=== PATIENT | male | born 1995 | race American Indian/Alaskan Native ===

== ENCOUNTER 2016-10-25 14:50 | Emergency (ER) | payer SELFPAY ==
--- NOTE | 2016-10-25 21:18 | Emergency Department Report ---
HPI - General Chief Complaint: Urogenital-Male Time Seen by Provider: 10/25/16 21:04 - HPI HPI: Room 8 The patient is a 21-year-old male presenting with chief complaint of intrascrotal mass the patient states for a little over one year he's had the sensation that there is a mass growing in his scrotum that is separate from his testicles. The patient states it hurts occasionally if he stands for prolonged periods of time. Patient denies actual testicular pain. Patient denies dysuria or hematuria states he feels at times he incompletely voids. Location: Scrotum Duration: Over one year Quality: Occasionally painful Severity: Moderate Modifying factors: Standing for prolonged periods of time brings on pain Context: [see above] Mode of transportation: Unknown ED Past Medical Hx - Past Medical History Previous Medical History?: Yes Hx Asthma: Yes - Surgical History Past Surgical History?: No - Family History Family history: no significant - Social History Smoking Status: Current Some Day Smoker Substance Use Type: Alcohol (occasional), Marijuana - Medications Home Medications: Home Medications Medication Instructions Recorded Confirmed Last Taken Type No Known Home Medications [No 10/25/16 10/25/16 Unknown History Reported Home Medications] ED Review of Systems ROS: Stated complaint: BACK/LEFT LEG PAIN Other details as noted in HPI Comment: All other systems reviewed and negative Constitutional: denies: chills, fever Eyes: denies: eye pain, eye discharge, vision change ENT: denies: ear pain, throat pain Respiratory: denies: cough, shortness of breath, wheezing Cardiovascular: denies: chest pain, palpitations Endocrine: no symptoms reported Gastrointestinal: denies: abdominal pain, nausea, diarrhea Genitourinary: other (scrotal mass). denies: dysuria, hematuria, testicular pain, testicular mass Musculoskeletal: denies: back pain, joint swelling, arthralgia Skin: denies: rash, lesions Psychiatric: denies: anxiety, depression Hematological/Lymphatic: denies: easy bleeding, easy bruising Physical Exam - Physical Exam Vital Signs: Vital Signs 10/25/16 16:12 Temperature 98.2 F Pulse Rate 65 Respiratory 16 Rate Blood Pressure 138/88 O2 Sat by Pulse 99 Oximetry Physical Exam: GENERAL: The patient is well-developed well-nourished On stretcher eating candy not appearing to be in acute distress. [] HEENT: Normocephalic. Atraumatic. Extraocular motions are intact. NECK: Trachea midline CHEST/LUNGS: There is no respiratory distress noted. ABDOMEN: There is no abdominal distention. SKIN: There is no rash. There is no edema. There is no diaphoresis. NEURO: The patient is awake, alert, and oriented. The patient is cooperative. The patient has normal speech and gait. MUSCULOSKELETAL: There is no evidence of acute injury. GENITOURINARY: Soft tissue fullness palpated in the upper left scrotum. There is no induration. No evidence of direct or indirect inguinal hernia on exam ED Course Vital Signs 10/25/16 16:12 Temperature 98.2 F Pulse Rate 65 Respiratory 16 Rate Blood Pressure 138/88 O2 Sat by Pulse 99 Oximetry ED Medical Decision Making - Lab Data Laboratory Tests 10/25/16 21:40 Urine Color [place] Urine Turbidity Clear Urine pH 5.0 Ur Specific [place] 1.031 H Urine Protein 100 mg/dl Urine Glucose (UA) Neg Urine Ketones Tr Urine Blood Neg Urine Nitrite Neg Urine Bilirubin Neg Urine Urobilinogen < 2.0 Ur Leukocyte Esterase Neg Urine WBC (Auto) 2.0 Urine RBC (Auto) 1.0 Calcium Oxalate Crystal Few Urine Mucus 3+ - Radiology Data Radiology results: report reviewed (testicular ultrasound, CT abdomen and pelvis ), image reviewed (testicular ultrasound, CT abdomen and pelvis) Testicular ultrasound (read by radiologist)-testicles are normal in size, configuration, location and echotexture. There is no testicular torsion, mass or orchitis. Left epididymis is enlarged. Epididymitis not excluded. There is a mass. The left scrotum measuring 5.2 x 1.9 x 4.7 cm. This could be a hernia please correlate clinically or consider CT scan. G abdomen pelvis (read by radiologist)-there is a 3 mm stone in the lower pole of the right kidney. There are no ureteral stones. There is no hydronephrosis. There is no bowel obstruction, colitis or enteritis. The appendix is normal. There is a large indirect left inguinal hernia containing inflamed omental fat. There is no herniation of bowel. - Differential Diagnosis scrotal mass, hydrocele, varicocele, inguinal hernia Critical care attestation.: If time is entered above; I have spent that time in minutes in the direct care of this critically ill patient, excluding procedure time. ED Disposition Clinical Impression: Indirect inguinal hernia, Epididymal thickening Disposition: DISCHARGED TO HOME OR SELFCARE Is pt being admited?: No Does the pt Need Aspirin: No Condition: Stable Instructions: Inguinal Hernia (ED), Epididymitis (ED) Additional Instructions: Return to the emergency department immediately should you develop worsening symptoms, fever, inability to tolerate food or liquid or any other concerns. Referrals: JUVENTINO SEO MD [Staff Physician] - [facility] (Dr. Seo is a general surgeon. Please follow up with him for further evaluation/management of your left indirect inguinal hernia) CORETTA STONE MD [Staff Physician] - 3-5 Days (Dr. Stone is a urologist. Please follow up with him for further evaluation of your enlarged epididymis) Forms: Work/School Release Form(ED) Time of Disposition: 00:50
[2016-10-25 22:56] LABS: Bilirubin,Urine NEG (Negative); Blood,Urine NEG (Negative); Ketones,Urine TR mg/dL (Negative); Leukocyte Esterase,Urine NEG (Negative); Mucus,Urine 3+ /HPF; Nitrite,Urine NEG (Negative); Urobilinogen,Urine < 2.0 mg/dL (<2.0)
--- NOTE | 2016-10-25 23:20 | Ultrasound Report ---
FINAL REPORT PROCEDURE: US TESTICULAR DOPPLER COMP TECHNIQUE: Real-time vitale-scale and color flow Doppler sonography in multiple planes of the scrotum, testicles, and epididymes was performed. Velocity spectral waveform analysis Doppler imaging of the arterial inflow and venous outflow of the testicles was performed with image documentation. CPT 55682 [place] 06357 HISTORY: left intrascrotal mass COMPARISON: No prior studies are available for comparison. FINDINGS: RIGHT TESTICLE: Size: 5.2 x 2.2 x 3.9 cm . Appearance: Normal size and echotexture . Arterial blood flow: Normal spectral waveforms, flow velocities and color flow images.. Venous blood flow: Normal spectral waveforms and color flow images. Right epididymis: Normal size and echotexture . Hydrocele: None . LEFT TESTICLE Size: 4.9 x 2.1 x 3.6 cm . Appearance: Normal size and echotexture . Arterial blood flow: Normal spectral waveforms, flow velocities and color flow images.. Venous blood flow: Normal spectral waveforms and color flow images. Leftepididymis: Left epididymis is enlarged.. Epididymitis not excluded. Hydrocele: None . There is a mass superior to the left scrotum measuring 5.2 x 1.9 x 4.7 centimeters. This could be a hernia. Please correlate clinically or consider CT scan. IMPRESSION: The testicles are normal in size, configuration, location and echotexture. There is no testicular torsion, mass or orchitis. Left epididymis is enlarged.. Epididymitis not excluded. There is a mass superior to the left scrotum measuring 5.2 x 1.9 x 4.7 centimeters. This could be a hernia. Please correlate clinically or consider CT scan.
--- NOTE | 2016-10-26 00:30 | Cat Scan Report ---
FINAL REPORT PROCEDURE: CT ABDOMEN PELVIS WO CON TECHNIQUE: Computerized axial tomography of the abdomen and pelvis was performed without intravenous contrast. This study is performed without intravascular contrast material and its sensitivity for abdominal and pelvic pathology, including neoplasms, inflammation, abscess, free fluid, thrombosis, arterial dissection and infarction, is reduced compared with a contrast enhanced study. HISTORY: left groin pain. Evaluate for hernia COMPARISON: No prior studies are available for comparison. FINDINGS: Visualized lower thorax: No significant abnormality. Liver: Normal size and attenuation. Spleen: Normal size and attenuation. Gallbladder and biliary system: Normal. Pancreas: Normal. Adrenals: Normal. Kidneys: There is a 3 millimeter stone in the lower pole of the right kidney. There are no ureteral stones. There is no hydronephrosis. GI tract: There is no bowel obstruction, colitis or enteritis. The appendix is normal.. Lymph nodes and mesentery: Normal. Vasculature: Normal. Bladder: Normal. Reproductive organs: Normal. Peritoneum: No free fluid. Musculoskeletal structures: No significant abnormality. Other: There is a large indirect left inguinal hernia containing inflamed omental fat. There is no herniation of bowel.. IMPRESSION: There is a 3 millimeter stone in the lower pole of the right kidney. There are no ureteral stones. There is no hydronephrosis. There is no bowel obstruction, colitis or enteritis. The appendix is normal.. There is a large indirect left inguinal hernia containing inflamed omental fat. There is no herniation of bowel.. .
[2016-10-26 02:08] VITALS: BP 124/72
== END 2016-10-26 01:00 | disposition home or self-care (01) ==
LOC: ED 14:50
DX: K40.90 Unilateral inguinal hernia, without obstruction or gangrene, not specified as recurrent (principal); L85.9 Epidermal thickening, unspecified; J45.909 Unspecified asthma, uncomplicated; F12.90 Cannabis use, unspecified, uncomplicated; Z72.0 Tobacco use
CPT/HCPCS: 74176; 81001; 93975

== ENCOUNTER 2018-02-25 10:57 | Emergency (ER) | payer OTHER ==
[2018-02-25 11:37] VITALS: BP 127/77
--- NOTE | 2018-02-25 12:03 | XRay Report ---
RIGHT HAND RADIOGRAPHS INDICATION: Right hand injury. COMPARISON: None similar. FINDINGS: AP, lateral and oblique right hand radiographs demonstrate intact bones and joints. Old healed fifth metacarpal shaft fracture may be noted. Mild to moderate soft tissue swelling along dorsum of the hand. No radiopaque foreign body. CONCLUSION: Right hand soft tissue swelling dorsally without acute bony abnormality, as described. Please correlate. Thank you for the opportunity to participate in this patient's care.
--- NOTE | 2018-02-25 12:37 | Emergency Department Report ---
ED Upper Extremity Inj HPI - General Chief Complaint: Extremity Injury, Upper Stated Complaint: RIGHT HAND INJURY Time Seen by Provider: 02/25/18 12:24 Source: patient Mode of arrival: Ambulatory Limitations: No Limitations - History of Present Illness MD Complaint: Injury to:: right, hand -: Sudden, days(s) (two) Other Extremity Injury: Hand: Right Other Injuries: none Severity scale (0 -10): 4 Context: direct blow Associated Symptoms: denies other symptoms. denies: weakness, numbness, neck pain, suspects foreign body, nausea/vomiting, heard/felt popping sensat - Related Data Home Medications Medication Instructions Recorded Confirmed Last Taken No Known Home Medications [No 10/25/16 10/25/16 Unknown Reported Home Medications] Allergies Allergy/AdvReac Type Severity Reaction Status Date / Time Penicillins AdvReac Hives Verified 10/25/16 16:17 ED Review of Systems ROS: Stated complaint: RIGHT HAND INJURY Other details as noted in HPI Comment: All other systems reviewed and negative Respiratory: denies: cough Cardiovascular: denies: chest pain Musculoskeletal: denies: back pain ED Past Medical Hx - Past Medical History Previous Medical History?: Yes Hx Asthma: Yes - Surgical History Past Surgical History?: No - Social History Smoking Status: Current Every Day Smoker Substance Use Type: Alcohol, Marijuana - Medications Home Medications: Home Medications Medication Instructions Recorded Confirmed Last Taken Type No Known Home Medications [No 10/25/16 10/25/16 Unknown History Reported Home Medications] ED Physical Exam - General Limitations: No Limitations General appearance: alert, in no apparent distress - Head Head exam: Present: atraumatic, normocephalic - Eye Eye exam: Present: normal appearance - Neck Neck exam: Present: normal inspection, full ROM. Absent: tenderness, meningismus - Respiratory Respiratory exam: Present: normal lung sounds bilaterally, chest wall tenderness - Cardiovascular Cardiovascular Exam: Present: regular rate - GI/Abdominal GI/Abdominal exam: Present: soft. Absent: tenderness - Expanded Upper Extremity Exam Right Hand Wrist exam: Present: full ROM, tenderness, swelling, ecchymosis. Absent: laceration, deformity, crepidus, dislocation, erythema, amputation, nail avulsion, subungual hematoma ED Course Vital Signs 02/25/18 11:34 Temperature 97.7 F Pulse Rate 74 Respiratory 20 Rate Blood Pressure 127/77 O2 Sat by Pulse 97 Oximetry ED Medical Decision Making - Radiology Data Radiology results: report reviewed Right hand x-ray showed soft tissue swelling, no bone abnormalities. Critical care attestation.: If time is entered above; I have spent that time in minutes in the direct care of this critically ill patient, excluding procedure time. ED Disposition Clinical Impression: Contusion of hand Disposition: DC-01 TO HOME OR SELFCARE Is pt being admited?: No Condition: Stable Instructions: Contusion in Adults (ED) Referrals: PRIMARY CARE, [Primary Care Provider] - 3-5 Days
== END 2018-02-25 12:44 | disposition home or self-care (01) ==
LOC: ED 10:57
DX: S60.221A Contusion of right hand, initial encounter (principal); J45.909 Unspecified asthma, uncomplicated; F17.200 Nicotine dependence, unspecified, uncomplicated; F12.10 Cannabis abuse, uncomplicated; X58.XXXA Exposure to other specified factors, initial encounter; Y93.89 Activity, other specified; Y92.89 Other specified places as the place of occurrence of the external cause; Y99.8 Other external cause status